=== PATIENT | female | born 1955 | race Caucasian/White ===

== ENCOUNTER 2021-09-14 13:33 | Emergency (ER) | payer MEDICARE, OTHER, SELFPAY ==
[2021-09-14 13:42] VITALS: BP 116/76; PULSE 87; O2SAT 94
--- NOTE | 2021-09-14 14:02 | ED_ITS ---
HPI - Nausea/Vomiting/Diarrhea General Chief complaint: General Medical Stated complaint: dizzy, abd pain Time Seen by Provider: 09/14/21 14:02 Source: patient Mode of arrival: EMS Limitations: no limitations History of Present Illness HPI Narrative: patient felt fine and then got sudden abdominal pain with diaphoresis and near syncope, but she did not pass out, she had a huge diarrheal movement all over herself. patient had fried fish and [place] fries, no one else had diarrhea. MD elicited complaint: diarrhea Onset (ago): minute(s) Description of diarrhea: semi-solid Associated abdominal pain: Yes Radiation: diffuse Pain consistency: now resolved Severity: severe Quality: cramping Related Data Allergies Allergy/AdvReac Type Severity Reaction Status Date / Time No Known Allergies Allergy Verified 09/14/21 14:48 Review of Systems Neurologic: Denies Sensory deficit (Neuro) [facility] Social History Social History Advance Directives: No Advance Directives Information Provided: No Physical Exam Vital Signs: Vital Signs: Last Vital Signs Temp 97.6 F 09/14/21 16:09 Pulse 88 09/14/21 16:09 Resp 18 09/14/21 16:09 BP 141/53 H 09/14/21 16:09 Pulse Ox 98 09/14/21 16:09 O2 Del Method 09/14/21 16:09 BMI result Body Mass Index 24.3 Const: General: healthy appearing Nutritional Appearance: average body habitus Orientation/consciousness: oriented to person and patient oriented x3 Limitations: no limitations HEENT: Head: Yes normal to inspection Ears: external ears normal General nose exam: Normal external nose present Mouth: Normal oral and palatal mucosa present and oropharynx normal Throat: Yes posterior oropharynx normal Eyes: General: appearance normal, both eyes and all related structures Neck: Other: supple Neck: Yes normal visual inspection Chest: Chest palpation & inspection: normal inspection of the chest Resp: Auscultation: clear to auscultation bilaterally Cardio: Jugular venous distension: no JVD Rate: regular rate Rhythm: regular rhythm Heart sounds: S1 normal heart sound present and S2 normal heart sound present GI: Inspection: Yes normal to inspection Palpation (GI): Soft to palpation, nontender and No hepatosplenomegaly present Auscultation: normal bowel sounds : General: Yes no CVA tenderness Back/Spine/Pelvis: Back: no CVA tenderness Skin: General skin exam: no rashes or lesions noted Neuro: General: oriented to person and patient oriented x3 Cranial nerves: Yes CN's II-XII intact bilaterally Motor exam (neuro): 5/5 motor strength present throughout Sensory Exam: No Sensory deficit (Neuro) Extrem: General: Yes normal to inspection Psych: Appearance: grossly normal Course Reevaluation(s) Reevaluation #1: patient looks well, she monitors her sugar in the mornings and it is running 130-140 now it is 287. She has be hydrated with NS and she will follow with her doctor. Patient with diarrhea and vasovagal near syncope will dc home Time: 16:56 MDM - Nausea/Vomiting/Diarrhea Lab Data Result diagrams: 09/14/21 15:06 09/14/21 15:06 Labs: Lab Results 09/14/21 09/14/21 Range/Units 15:06 15:06 WBC 8.8 (4.8-10.8) X10*3/uL RBC 4.15 L (4.20-5.50) X10*6/uL Hgb 12.9 (12.0-16.0) g/dl Hct 38.3 (37.0-47.0) % MCV 92.3 (80.0-98.0) fL MCH 31.1 (27.0-33.0) pg MCHC 33.7 (31.0-35.0) g/dl RDW 12.0 (11.0-16.0) % Plt Count 280 (160-400) X10*3/uL MPV 9.4 (9.4-12.3) fL Immature Gran % (Auto) 0.2 (0.0-0.4) % Neut % (Auto) 80.2 H (45-73) % Lymph % (Auto) 13.4 L (20-40) % [place] % (Auto) 5.7 (2-11) % Eos % (Auto) 0.3 (0-4) % Baso % (Auto) 0.2 (0-2) % Lymph # (Auto) 1.2 (1.2-4.9) X10*3/uL [place] # (Auto) 0.5 (0.1-1.2) X10*3/uL Eos # (Auto) 0.0 (0.0-0.4) X10*3/uL Baso # (Auto) 0.0 (0.0-0.2) X10*3/uL Abs Immat Gran (auto) 0.02 (0.00-0.03) X10*3/uL Absolute Neuts (auto) 7.0 (2.0-8.3) x10*3/uL Absolute Nucleated RBC 0.000 (0.0-0.012) X10*3/uL Nucleated RBC % (auto) 0.0 (0.0-0.2) /100WBC Sodium 135 (135-145) mmol/L Potassium 4.4 (3.3-5.1) mmol/L Chloride 100 (96-108) mmol/L Carbon Dioxide 26 (22-29) mmol/L Anion Gap 13 (12-20) BUN 22 H (9-16) mg/dL Creatinine 0.86 (0.5-1.4) mg/dL Estim Creat Clear Calc 61.7 Estimated GFR > 60 Random Glucose 287 H (60-115) mg/dL Calcium 9.6 (8.4-10.2) mg/dL Total Bilirubin 0.4 (0.0-1.0) mg/dL Direct Bilirubin 0.2 (0.0-0.5) mg/dL AST 18 (5-31) U/L ALT 13 (0-31) U/L Alkaline Phosphatase 80 (39-117) U/L Total Protein 7.2 (6.5-8.0) g/dL Albumin 4.4 (3.5-5.0) g/dL ECG Data Attestation: I personally reviewed and interpreted this ECG as follows: Interpretation: sinus 84, no st or twave changes Discharge Plan Discharge Clinical Impression: Diarrhea, Vasovagal attack, Acute hyperglycemia Patient Disposition: Home, Self-Care Instructions: Acute Diarrhea (ED), Near Syncope (ED), Diabetic Hyperglycemia (ED) Referrals: Physician,Unknown J [Primary Care Provider] - 1 week
[2021-09-14 14:12] VITALS: BP 150/66; PULSE 83; RESP 19; TEMP 36.9; O2SAT 98; BMI 24.3
--- NOTE | 2021-09-14 14:48 | ECG_ITS ---
Test Reason : ams Blood Pressure : / mmHG Vent. Rate : 084 BPM Atrial Rate : 084 BPM P-R Int : 180 ms QRS Dur : 104 ms QT Int : 388 ms P-R-T Axes : 018 -17 038 degrees QTc Int : 458 ms Normal sinus rhythm Moderate voltage criteria for LVH, may be normal variant ( R in aVL , Bent product ) Borderline ECG No previous ECGs available Referred By: Jaron Moses Electronically Signed By:PRIYANK HOBSON
[2021-09-14 15:13] LABS: MANUAL DIFF FLAG NO
[2021-09-14 15:18] LABS: Basophils Percent Auto 0.2 % (0-2); Eosinophils Percent Auto 0.3 % (0-4); Hematocrit 38.3 % (37.0-47.0); Hemoglobin 12.9 g/dl (12.0-16.0); Imm Gran Abs Auto 0.02 X10*3/uL (0.00-0.03); Imm Gran Pct Auto 0.2 % (0.0-0.4); Lymphocytes Absolute Auto 1.2 X10*3/uL (1.2-4.9); Lymphocytes Percent Auto 13.4 % (20-40); Mean Corpuscular HGB Conc 33.7 g/dl (31.0-35.0); Mean Corpuscular Hemoglobin 31.1 pg (27.0-33.0); Mean Corpuscular Volume 92.3 fL (80.0-98.0); Mean Platelet Volume 9.4 fL (9.4-12.3); Monocytes Absolute Auto 0.5 X10*3/uL (0.1-1.2); Monocytes Percent Auto 5.7 % (2-11); Neutrophils Percent Auto 80.2 % (45-73); Platelet Count 280 X10*3/uL (160-400); Red Blood Count 4.15 X10*6/uL (4.20-5.50); White Blood Count 8.8 X10*3/uL (4.8-10.8)
[2021-09-14] MEDS: 0.9 % Sodium Chloride 1,000 ML 200 ML IVCONT (15:26)
[2021-09-14 15:32] LABS: Alanine Aminotransferase 13 U/L (0-31); Albumin Level 4.4 g/dL (3.5-5.0); Alkaline Phosphatase 80 U/L (39-117); Anion Gap 13 (12-20); Aspartate Amino Transferase 18 U/L (5-31); Bilirubin Direct 0.2 mg/dL (0.0-0.5); Bilirubin Total 0.4 mg/dL (0.0-1.0); Blood Urea Nitrogen 22 mg/dL (9-16); Calcium 9.6 mg/dL (8.4-10.2); Carbon Dioxide 26 mmol/L (22-29); Chloride 100 mmol/L (96-108); Creatinine Clr Calc Pharmacy 61.7; Estimated Glomerular Filt Rate > 60; Glucose Random 287 mg/dL (60-115); Potassium 4.4 mmol/L (3.3-5.1); Sodium 135 mmol/L (135-145); Total Protein 7.2 g/dL (6.5-8.0)
[2021-09-14 16:09] VITALS: BP 141/53; PULSE 88; RESP 18; TEMP 36.4; O2SAT 98
== END 2021-09-14 17:17 | disposition home or self-care (01) ==
PROVIDERS: Emergency Provider Emergency Medicine
DX: R55 Syncope and collapse (principal); R19.7 Diarrhea, unspecified; R73.9 Hyperglycemia, unspecified
CPT/HCPCS: 36415; 80048; 80076; 85025; 93005; 96360; 96361; 99284; 99285